=== PATIENT | female | born 1965 | race Caucasian/White ===

== ENCOUNTER 2016-04-18 14:07 | Outpatient (CLI) | payer OTHER | END 2016-04-18 18:52 | disposition home or self-care (01) | LOC: SMA 14:07 | PROVIDERS: ATTEND Family Medicine | DX: Z12.31 Encounter for screening mammogram for malignant neoplasm of breast (principal) | CPT/HCPCS: 77067; G0202 ==

== ENCOUNTER 2018-12-24 11:41 | Outpatient (CLI) | payer OTHER | END 2018-12-24 21:10 | disposition home or self-care (01) | LOC: SMA 11:41 | PROVIDERS: ATTEND Family Medicine | DX: Z12.31 Encounter for screening mammogram for malignant neoplasm of breast (principal); N64.89 Other specified disorders of breast | CPT/HCPCS: 77067 ==